=== PATIENT | female | born 1950 | race Caucasian/White ===

== ENCOUNTER 2018-07-21 13:23 | Emergency (ER) | payer BC, MEDICARE, OTHER ==
--- NOTE | 2018-07-21 14:00 | EDM.PDOC ---
ED HPI GENERAL MEDICAL PROBLEM - General Chief Complaint: Bite:Animal, Insect Stated Complaint: TICK BITE ON RIGHT ARM Time Seen by Provider: 07/21/18 13:40 Source of Information: Reports: Patient History Limitations: Reports: No Limitations - History of Present Illness INITIAL COMMENTS - FREE TEXT/NARRATIVE: 68 yo female is here after picking a small tick off her R forearm upon awakening yesterday. Doesn't feel right since then. Has an area of redness and itching around this. Onset: Unknown/Unsure Onset Date: 07/20/18 Duration: Day(s): (1), Constant Location: Reports: Upper Extremity, Right Quality: Reports: Other (itching) Severity: Mild Improves with: Reports: None Worsens with: Reports: None Context: Reports: Other (tick bite) Associated Symptoms: Reports: Malaise, Rash. Denies: Fever/Chills Treatments ONLINE EDITOR: Reports: Other (see below) (none) right; arm Pain Score (Numeric/FACES): 2 - Related Data Allergies Allergy/AdvReac Type Severity Reaction Status Date / Time diphenhydramine Allergy Other Verified 07/21/18 13:39 [From Benadryl] prochlorperazine edisylate AdvReac Shaking Verified 07/21/18 13:39 [From Compazine] Home Meds: Home Meds Calcium Carb/Vit D3/Minerals [Calcium 600+D Plus Minerals] 1 each PO DAILY 02/01 [History] [place]-3S/DHA/Epa/Fish Oil [[place]-3 Fish Oil 1,200 mg Sfgl] 1 each PO DAILY 02/01 [History] Cholecalciferol (Vitamin D3) [Vitamin D3] 1,000 units PO DAILY 04/19/17 [History ] Diphenoxylate HCl/Atropine [Diphenoxylate-Atrop 2.5-0.025] 1 tab PO ASDIRECTED 07/21/18 [History] Doxycycline [Vibramycin] 200 mg PO DAILY #1 cap 07/21/18 [Rx] 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: Musculoskeletal History: Reports: Other (See Below) Other Musculoskeletal History: heel repair Neurological History: Reports: CVA - Past Surgical History Female Surgical History: Reports: Breast Reduction, Hysterectomy Social & Family History - Tobacco Use Smoking Status *Q: Never Smoker - Caffeine Use Caffeine Use: Reports: Coffee - Recreational Drug Use Recreational Drug Use: No ED ROS GENERAL - Review of Systems Review Of Systems: See Below Constitutional: Reports: Malaise HEENT: Reports: No Symptoms Respiratory: Reports: No Symptoms Cardiovascular: Reports: No Symptoms GI/Abdominal: Reports: No Symptoms : Reports: No Symptoms Musculoskeletal: Reports: No Symptoms Skin: Reports: Pruritis (mild at site), Erythema (at site of tick bite) Neurological: Reports: No Symptoms ED EXAM, ANIMAL BITE - Physical Exam Exam: See Below Exam Limited By: No Limitations General Appearance: Alert, WD/WN, No Apparent Distress Eye Exam: Bilateral Eye: Normal Inspection Ears: Normal External Exam, Hearing Grossly Normal Nose: Normal Inspection, No Blood Throat/Mouth: Normal Inspection, Normal Lips, Normal Voice, No Airway Compromise Head: Atraumatic, Normocephalic Neck: Normal Inspection Respiratory/Chest: No Respiratory Distress, Lungs Clear, Normal Breath Sounds, No Accessory Muscle Use Cardiovascular: Regular Rate, Rhythm, No Edema GI/Abdominal: Non-Tender Back Exam: Normal Inspection. No: CVA Tenderness (R), CVA Tenderness (L) Extremities: Normal Inspection Neurological: Alert, Oriented, CN II-XII Intact, Normal Cognition, No Motor/ Sensory Deficits Psychiatric: Normal Affect, Normal Mood Skin Exam: Normal Color, Warm/Dry Lymphadenopathy: Bilateral: No Adenopathy Lymphatic: No Adenopathy Course - Vital Signs Last Recorded V/S: Last Vital Signs Temp 36.3 C 07/21/18 13:43 Pulse 75 07/21/18 13:43 Resp 17 07/21/18 13:43 BP 139/82 07/21/18 13:43 Pulse Ox 98 07/21/18 13:43 Departure - Departure Time of Disposition: 13:58 Disposition: Home, Self-Care 01 Condition: Good Clinical Impression: Tick bite of right forearm Qualifiers: Encounter type: initial encounter Qualified Code(s): S50.861A - Insect bite ( nonvenomous) of right forearm, initial encounter; W57.XXXA - Bitten or stung by nonvenomous insect and other nonvenomous arthropods, initial encounter - Discharge Information *PRESCRIPTION DRUG MONITORING PROGRAM REVIEWED*: No *COPY OF PRESCRIPTION DRUG MONITORING REPORT IN PATIENT MIKE: No Prescriptions: Doxycycline [Vibramycin] 200 mg PO DAILY #1 cap Instructions: Tick Bite Information, Adult, [id number] Referrals: Carl Schwartz MD [Primary Care Provider] - Additional Instructions: Take doxycycline as directed. Recheck as needed.
== END 2018-07-21 14:25 | disposition home or self-care (01) ==
LOC: JP.ED 13:23
DX: S50.861A Insect bite (nonvenomous) of right forearm, initial encounter (principal); Z79.899 Other long term (current) drug therapy; W57.XXXA Bitten or stung by nonvenomous insect and other nonvenomous arthropods, initial encounter; Z88.8 Allergy status to other drugs, medicaments and biological substances
CPT/HCPCS: 99281; 99283

== ENCOUNTER 2020-12-24 19:38 | Emergency (ER) | payer MEDICARE ==
--- NOTE | 2020-12-24 20:24 | EDM.PDOC ---
ED HPI GENERAL MEDICAL PROBLEM - General Chief Complaint: Gastrointestinal Problem Stated Complaint: CRAMPING Time Seen by Provider: 12/24/20 20:09 Source of Information: Reports: Patient History Limitations: Reports: No Limitations - History of Present Illness INITIAL COMMENTS - FREE TEXT/NARRATIVE: Christin is a 70-year-old female presenting to the ED for evaluation of abdominal pain, diarrhea, and cramping. She underwent a colonoscopy today in [place] and on her ride home started having increasing cramping and had one bout of diarrheal stool. Her colonoscopy which had a polypectomy using hot snare at the splenic flexure for a 10 mm polyp. She also had a cold snare polypectomy in the rectum for a 4 mm polyp. She does have evidence of diverticulosis on the colonoscopy and she carries a diagnosis of microscopic colitis. Today she started having severe abdominal cramping after leaving [facility] post colonoscopy. The cramping intensified during her ride home and they had to stop midway for her to have a diarrheal bowel movement. There was no obvious blood but the pain continued to worsen prompting her to come for evaluation. She did talk to the surgical nurse at [facility] who recommended that she go to the nearest emergency room. The patient's pain is started to ease up a bit. She denies any current nausea and denies any vomiting. She did have shaking chills in the parking lot pulling into the ER but it appears that she is afebrile here. She was given warm blankets and feels better with the chills. She is thirsty but we've asked her not to drink anything until we make sure that nothing is surgically going on in her abdomen. What is worrisome as they did a hot snare at the splenic flexure for a very large polyp so we'll need to assess her for any perforation. 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: Musculoskeletal History: Reports: Other (See Below) Other Musculoskeletal History: heel repair Neurological History: Reports: CVA - Past Surgical History Female Surgical History: Reports: Breast Reduction, Hysterectomy Social & Family History - Caffeine Use Caffeine Use: Reports: Coffee ED ROS GENERAL - Review of Systems Review Of Systems: See Below Constitutional: Reports: Chills, Other (Increased thirst) HEENT: Reports: No Symptoms Respiratory: Reports: No Symptoms Cardiovascular: Reports: No Symptoms Endocrine: Reports: No Symptoms GI/Abdominal: Reports: Abdominal Pain (Diffuse abdominal pain. The patient feels like she has been doing 1000 crunches or been punched in the gut.), Diarrhea (Episode of nonbloody diarrhea coming home from the colonoscopy) : Reports: No Symptoms Musculoskeletal: Reports: No Symptoms Skin: Reports: No Symptoms Neurological: Reports: No Symptoms Psychiatric: Reports: No Symptoms Hematologic/Lymphatic: Reports: No Symptoms ED EXAM, GI/ABD - Physical Exam Exam: See Below Exam Limited By: No Limitations General Appearance: Alert, No Apparent Distress Eyes: Bilateral: EOMI Throat/Mouth: Normal Inspection, Normal Oropharynx, Normal Voice, No Airway Compromise Head: Atraumatic, Normocephalic Neck: Normal Inspection, Supple, Non-Tender, Full Range of Motion Respiratory/Chest: No Respiratory Distress, Lungs Clear, Normal Breath Sounds Cardiovascular: Normal Peripheral Pulses, Regular Rate, Rhythm, No Murmur GI/Abdominal Exam: Distended (Distended abdomen with tympany to percussion), Guarding (Guarding throughout the abdomen), Abnormal Bowel Sounds (Diminished bowel sounds). No: Rebound Back Exam: Normal Inspection Neurological: Alert, Oriented, Normal Cognition, No Motor/Sensory Deficits Psychiatric: Normal Affect, Normal Mood Skin Exam: Warm, Dry, Intact, Normal Color Course - Vital Signs Last Recorded V/S: Last Vital Signs Temp 36.8 C 12/24/20 20:48 Pulse 83 12/24/20 20:48 Resp 18 12/24/20 20:48 BP 183/92 H 12/24/20 20:48 Pulse Ox 100 12/24/20 20:48 - Orders/Labs/Meds Orders: Active Orders 24 hr Category Date Time Status Abdomen 2V AP Flat Upright [CR] Stat Exams 12/24/20 20:25 Taken Labs: Laboratory Tests 12/24/20 12/24/20 Range/Units 20:46 20:46 WBC 10.2 (4.5-11.0) K/uL RBC 4.57 (3.30-5.50) M/uL Hgb 14.2 (12.0-15.0) g/dL Hct 42.6 (36.0-48.0) % MCV 93 (80-98) fL MCH 31 (27-31) pg MCHC 33 (32-36) % Plt Count 182 (150-400) K/uL Neut % (Auto) 86.8 H (36-66) % Lymph % (Auto) 6.4 L (24-44) % Thomas % (Auto) 6.1 H (2-6) % Eos % (Auto) 0.6 L (2-4) % Baso % (Auto) 0.1 (0-1) % Sodium 142 (140-148) mmol/L Potassium 4.4 (3.6-5.2) mmol/L Chloride 106 (100-108) mmol/L Carbon Dioxide 25 (21-32) mmol/L Anion Gap 10.8 (5.0-14.0) mmol/L BUN 11 (7-18) mg/dL Creatinine 0.9 (0.6-1.0) mg/dL Est Cr Clr Drug Dosing 56.56 mL/min Estimated GFR (MDRD) > 60 (>60) Glucose 180 H (74-106) mg/dL Calcium 8.9 (8.5-10.1) mg/dL - Re-Assessments/Exams Free Text/Narrative Re-Assessment/Exam: 12/24/20 22:18 I reviewed the patient's labs showing a normal CBC. Her two-view abdomen was also unremarkable for any free air but did show fair amount of air throughout the colon and into the small bowel likely secondary to insufflation with nitrogen from her colonoscopy today. There was no evidence for obstruction with no air-fluid levels noted. Departure - Departure Time of Disposition: 22:12 Disposition: Home, Self-Care 01 Clinical Impression: Bloated abdomen Abdominal pain Qualifiers: Abdominal location: generalized Qualified Code(s): R10.84 - Generalized abdominal pain - Discharge Information Instructions: Abdominal Bloating, Abdominal Pain, Adult, [id number] Referrals: Lora Alvarenga DO [Primary Care Provider] - Forms: ED Department Discharge Care Plan Goals: Abdominal pain is likely due to the insufflation with nitrogen that was performed during the colonoscopy today. There was no evidence on your x-rays of any free air to signify a perforation of your colon which was what was worrisome given your biopsy and polypectomy at the splenic flexure (left upper quadrant of the abdomen). Your blood work was also unremarkable for any sign of infection. I suspect as the day goes on and your body starts to absorb the nitrogen or you start to pass air from your rectum that your symptoms will significantly improve. You will also likely have some diarrhea and increased thirst due to the bowel prep. Sepsis Event Note (ED) - Focused Exam Vital Signs: Vital Signs Temp Pulse Resp BP Pulse Ox 12/24/20 20:48 36.8 C 83 18 183/92 H 100 12/24/20 20:07 36.8 C 83 18 183/92 H 100 - Problem List & Annotations (1) Abdominal pain SNOMED Code(s): 96000222 Code(s): R10.9 - UNSPECIFIED ABDOMINAL PAIN Status: Acute Priority: Medium Current Visit: Yes Qualifiers: Abdominal location: generalized Qualified Code(s): R10.84 - Generalized abdominal pain (2) Bloated abdomen SNOMED Code(s): 280386780 Code(s): R14.0 - ABDOMINAL DISTENSION (GASEOUS) Status: Acute Priority: Medium Current Visit: Yes - Problem List Review Problem List Initiated/Reviewed/Updated: Yes - My Orders Last 24 Hours: My Active Orders 12/24/20 20:25 Abdomen 2V AP Flat Upright [CR] Stat - Assessment/Plan Last 24 Hours: My Active Orders 12/24/20 20:25 Abdomen 2V AP Flat Upright [CR] Stat
--- NOTE | 2020-12-27 09:41 | CR ---
Abdomen 2V AP Flat Upright CLINICAL HISTORY: Post colonoscopy abdominal pain FINDINGS: No free air is identified. Small intestinal configuration is nonacute. No definite urinary stones are seen IMPRESSION: Nonacute intestinal gas pattern
== END 2020-12-24 22:28 | disposition home or self-care (01) ==
LOC: JP.ED 19:38
DX: R10.84 Generalized abdominal pain (principal); R14.0 Abdominal distension (gaseous); Z88.8 Allergy status to other drugs, medicaments and biological substances
CPT/HCPCS: 36415; 74019; 74019-26; 80048; 85025; 99284

== ENCOUNTER 2022-03-05 14:34 | Emergency (ER) | payer MEDICARE | END 2022-03-05 16:06 | disposition home or self-care (01) | LOC: JP.ED 14:34 | DX: S92.812A Other fracture of left foot, initial encounter for closed fracture (principal); Z88.8 Allergy status to other drugs, medicaments and biological substances; W01.0XXA Fall on same level from slipping, tripping and stumbling without subsequent striking against object, initial encounter | CPT/HCPCS: 73630-LT; 99283 ==